=== PATIENT | female | born 1940 | race Caucasian/White ===

== ENCOUNTER 2020-08-19 17:34 | Inpatient (IN) | payer MEDICAID ==
[~2020-08-19] VITALS: Ht 137.2 cm; Wt 113.4 kg
[2020-08-19 18:46] LABS: HEMATOCRIT. 34.2 % (36.0-48.0); HEMOGLOBIN. 11.3 g/dL (12.0-16.0); MEAN CORPUSCULAR HEMOGLOBIN 27.6 pg (28.0-32.0); MEAN CORPUSCULAR VOLUME 83.8 fL (81.0-99.0); PLATELET 341 x1000/uL (130-400); RED BLOOD CELL COUNT 4.08 mill/uL (4.2-5.4); RED CELL DISTRIBUTION WIDTH 18.8 % (11.6-14.6)
[2020-08-19 18:47] LABS: CHLORIDE 108 mEq/L (98-107)
[2020-08-19 19:37] LABS: PLATELET ESTIMATE NORMAL
[2020-08-19] MEDS ORDERED: FUROSEMIDE 40MG/4ML VIAL IVP ONE (22:15)
[2020-08-20 09:26] VITALS: BP 140/88
[2020-08-20] MEDS ORDERED: [UNRECOGNIZED DRUG - CODE] PO (11:12)
[2020-08-20 11:40] VITALS: BP 104/88
[2020-08-20 12:00] VITALS: BP 157/99
[2020-08-20] MEDS ORDERED: ONDANSETRON HCL 4MG/2ML INJ IV PRN (12:00)
[2020-08-20] MEDS ORDERED: ACETAMINOPHEN 325MG TABLET PO PRN (12:00)
[2020-08-20 16:00] VITALS: BP 133/75
[2020-08-20] MEDS ORDERED: ALBUTEROL 6.7GM HFA INHALER ORI PRN (16:30)
[2020-08-20] MEDS ORDERED: ENOXAPARIN 30MG/0.3ML SYR SUBCUT SCH (17:00)
[2020-08-20] MEDS: FUROSEMIDE 40MG/4ML VIAL IVP SCH (17:08)
[2020-08-20 17:22] LABS: CLARITY URINE CLEAR (CLEAR); COLOR URINE YELLOW (YELLOW); KETONES URINE NEGATIVE (NEGATIVE); LEUKOCYTE ESTERASE URINE NEGATIVE (NEGATIVE); NITRITE URINE NEGATIVE (NEGATIVE); OCCULT BLOOD URINE NEGATIVE (NEGATIVE); PROTEIN URINE NEGATIVE (NEGATIVE); SPECIFIC GRAVITY URINE 1.016 (1.005-1.030)
[2020-08-20 20:00] VITALS: BP 144/92
[2020-08-21] VITALS: BP 152/82
[2020-08-21 04:00] VITALS: BP 122/73
[2020-08-21 07:16] LABS: CHLORIDE 108 mEq/L (98-107)
[2020-08-21 07:17] LABS: BASOPHILS % 0.3 % (0.0-2.0); HEMATOCRIT. 35.7 % (36.0-48.0); HEMOGLOBIN. 11.4 g/dL (12.0-16.0); LYMPHOCYTES % 17.3 % (20.0-50.0); MEAN CORPUSCULAR HEMOGLOBIN 27.3 pg (28.0-32.0); MEAN CORPUSCULAR VOLUME 85.2 fL (81.0-99.0); MEAN PLATELET VOLUME 8.6 fl (7.4-10.4); MONOCYTES % 8.5 % (2.0-8.0); NEUTROPHILS % 72.9 % (40.0-76.0); PLATELET 311 x1000/uL (130-400); RED BLOOD CELL COUNT 4.19 mill/uL (4.2-5.4); RED CELL DISTRIBUTION WIDTH 18.8 % (11.6-14.6)
[2020-08-21 08:00] VITALS: BP 105/58
[2020-08-21] MEDS: FUROSEMIDE 40MG/4ML VIAL IVP SCH ×2 (08:22→16:16)
[2020-08-21 12:00] VITALS: BP 109/67
[2020-08-21] MEDS ORDERED: IPRATROPIUM/ALBUTEROL 0.5-3(2.5)MG/3ML NEB HHN PRN (12:15)
[2020-08-21 16:00] VITALS: BP 120/70
[2020-08-21] MEDS ORDERED: FURO-151 MT (17:10)
[2020-08-21 17:27] VITALS: BP 120/70
[2020-08-21] MEDS ORDERED: ENOXAPARIN 30MG/0.3ML SYR SUBCUT SCH (21:00)
[2020-08-31] MEDS ORDERED: WARF-67 PO (00:29)
[2020-08-31] MEDS ORDERED: MONT10TA32 PO (00:34)
[2020-08-31] MEDS ORDERED: LOSA100T32 MT (00:34)
[2020-08-31] MEDS ORDERED: TOPUD PO (00:34)
[2020-08-31] MEDS ORDERED: FOLI-43 MT (00:34)
[2020-08-31] MEDS ORDERED: ATOR10TA69 PO (00:34)
[2020-09-01] MEDS ORDERED: FURO80TA87 MT (11:04)
[2020-09-01] MEDS ORDERED: DILT120C88 PO (11:04)
[2020-09-01] MEDS ORDERED: POTA20TA82 PO (11:04)
[2020-09-01] MEDS ORDERED: RIVA10TA PO (11:04)
== END 2020-08-21 19:00 | disposition home or self-care (01) | DRG 194 ==
LOC: ER 17:34 → 7WST 23:31 → EDBD 23:31 → ENRESERV 08-20 07:27 → CANRESERV 08-20 07:27 → ENRESERV 08-20 07:45 → 8WST 08-21 10:23
PROVIDERS: ADMIT Internal Medicine; ATTEND Internal Medicine
DX: I11.0 Hypertensive heart disease with heart failure (principal); J96.00 Acute respiratory failure, unspecified whether with hypoxia or hypercapnia; E44.0 Moderate protein-calorie malnutrition; E87.8 Other disorders of electrolyte and fluid balance, not elsewhere classified; D64.9 Anemia, unspecified; I48.91 Unspecified atrial fibrillation; E66.01 Morbid (severe) obesity due to excess calories; J45.909 Unspecified asthma, uncomplicated; I50.31 Acute diastolic (congestive) heart failure; Z20.822 Contact with and (suspected) exposure to COVID-19; Z68.44 Body mass index [BMI] 60.0-69.9, adult
CPT/HCPCS: 36415; 71045; 80048; 80053; 81003; 82962; 83605; 83880; 84443; 84484; 85025; 93005; 93306; 99285; J1650; J1940; U0003; U0005

== ENCOUNTER 2020-09-15 11:25 | Inpatient (IN) | payer MEDICAID ==
[~2020-09-15] VITALS: Ht 157.5 cm; Wt 106.7 kg
[~2020-09-15 11:25] MED LIST: ATOR10TA69 PO; DILT120C88 PO; FOLI-43 MT; FURO80TA87 MT; LOSA100T32 MT; MONT10TA32 PO; POTA20TA82 PO; RIVA10TA PO; TOPUD PO; [UNRECOGNIZED DRUG - CODE] PO
[2020-09-15 12:15] LABS: BASOPHILS % 0.4 % (0.0-2.0); EOSINOPHILS % 0.5 % (0.0-5.0); HEMOGLOBIN. 10.6 g/dL (12.0-16.0); LYMPHOCYTES % 15.8 % (20.0-50.0); MEAN CORPUSCULAR HEMOGLOBIN 28.2 pg (28.0-32.0); MEAN CORPUSCULAR VOLUME 82.1 fL (81.0-99.0); MEAN PLATELET VOLUME 7.9 fl (7.4-10.4); MONOCYTES % 6.5 % (2.0-8.0); NEUTROPHILS % 76.8 % (40.0-76.0); PLATELET 356 x1000/uL (130-400); RED BLOOD CELL COUNT 3.77 mill/uL (4.2-5.4); RED CELL DISTRIBUTION WIDTH 16.9 % (11.6-14.6)
[2020-09-15 12:23] LABS: CHLORIDE 110 mEq/L (98-107)
[2020-09-15 12:26] LABS: INR 1.1; PROTHROMBIN TIME 11.9 sec (9.6-11.0)
[2020-09-15] MEDS: FUROSEMIDE 40MG/4ML VIAL IV ONE ×2 (13:15→14:03)
[2020-09-15] MEDS: NITROGLYCERIN OINT 1GM/INCH UDPKT TD ONE ×2 (13:15→14:04)
[2020-09-15] MEDS: ASPIRIN 81MG TABLET PO ONE ×2 (13:15→14:03)
[2020-09-15] MEDS ORDERED: LORAZEPAM 2MG/ML CPJ IM STA (15:39)
[2020-09-15] MEDS: LORAZEPAM 2MG/ML CPJ IV ONE ×2 (15:42→15:43)
[2020-09-15] MEDS ORDERED: ONDANSETRON HCL 4MG/2ML INJ IV PRN (16:30)
[2020-09-15] MEDS ORDERED: ACETAMINOPHEN 325MG TABLET PO PRN (16:30)
[2020-09-15] MEDS ORDERED: HYDROCODONE/ACETAMINOPHEN 5/325MG TABLET PO PRN (16:30)
[2020-09-15] MEDS ORDERED: LORAZEPAM 2MG/ML CPJ IM PRN (16:45)
[2020-09-15] MEDS ORDERED: HALOPERIDOL LACTATE 5MG/ML VIAL IM ONE (18:15)
[2020-09-15] MEDS: ENOXAPARIN 40MG/0.4ML SYR SUBCUT SCH (19:38)
[2020-09-15] MEDS: FUROSEMIDE 40MG/4ML VIAL IV SCH (20:16)
[2020-09-15 22:00] VITALS: BP 129/80
[2020-09-16] VITALS: BP 129/75
[2020-09-16 00:07] LABS: CREATINE KINASE 66 IU/L (26-192)
[2020-09-16 00:08] LABS: CREATINE KINASE MB FRACTION 1.7 ng/mL (0.5-3.6)
[2020-09-16] MEDS ORDERED: HALOPERIDOL LACTATE 5MG/ML VIAL IM SCH (01:30)
[2020-09-16 04:00] VITALS: BP_SYST 129; BP_SYST 182; BP_DIAS 73; BP_DIAS 96
[2020-09-16] MEDS: FUROSEMIDE 40MG/4ML VIAL IV SCH ×2 (05:58→17:45)
[2020-09-16 06:54] LABS: CHLORIDE 107 mEq/L (98-107)
[2020-09-16 07:02] LABS: LDL CHOLESTEROL 81 mg/dL (5-100)
[2020-09-16 07:03] LABS: CREATINE KINASE MB FRACTION 1.9 ng/mL (0.5-3.6); HDL CHOLESTEROL 50 mg/dL (40-59)
[2020-09-16 07:04] LABS: CREATINE KINASE 78 IU/L (26-192)
[2020-09-16 07:06] LABS: BASOPHILS % 0.5 % (0.0-2.0); EOSINOPHILS % 3.1 % (0.0-5.0); HEMATOCRIT. 34.4 % (36.0-48.0); HEMOGLOBIN. 11.4 g/dL (12.0-16.0); LYMPHOCYTES % 12.9 % (20.0-50.0); MEAN CORPUSCULAR HEMOGLOBIN 27.3 pg (28.0-32.0); MEAN CORPUSCULAR VOLUME 82.6 fL (81.0-99.0); MEAN PLATELET VOLUME 9.2 fl (7.4-10.4); MONOCYTES % 6.3 % (2.0-8.0); NEUTROPHILS % 77.2 % (40.0-76.0); PLATELET 418 x1000/uL (130-400); RED BLOOD CELL COUNT 4.17 mill/uL (4.2-5.4); RED CELL DISTRIBUTION WIDTH 17.1 % (11.6-14.6)
[2020-09-16 08:00] VITALS: BP 148/82
[2020-09-16] MEDS ORDERED: FUROSEMIDE 40MG/4ML VIAL IV SCH (09:00)
[2020-09-16] MEDS: SPIRONOLACTONE 25MG TABLET PO SCH (09:48)
[2020-09-16] MEDS: ASPIRIN 81MG TABLET PO SCH (10:00)
[2020-09-16 12:00] VITALS: BP 145/86
[2020-09-16] MEDS ORDERED: CLONIDINE 0.1MG TABLET PO PRN (15:00)
[2020-09-16 16:00] VITALS: BP 144/89
[2020-09-16] MEDS: ENOXAPARIN 40MG/0.4ML SYR SUBCUT SCH (17:44)
[2020-09-16 20:00] VITALS: BP 106/65
[2020-09-17] MEDS ORDERED: IPRATROPIUM/ALBUTEROL 0.5-3(2.5)MG/3ML NEB HHN PRN (00:15)
[2020-09-17 00:31] VITALS: BP 135/62
[2020-09-17 04:00] VITALS: BP 164/62
[2020-09-17] MEDS: FUROSEMIDE 40MG/4ML VIAL IV SCH ×2 (07:00→17:39)
[2020-09-17 08:00] VITALS: BP_SYST 105; BP_SYST 151; BP_DIAS 64; BP_DIAS 72
[2020-09-17] MEDS: IPRATROPIUM/ALBUTEROL 0.5-3(2.5)MG/3ML NEB HHN SCH ×3 (08:39→20:32)
[2020-09-17] MEDS: SPIRONOLACTONE 25MG TABLET PO SCH (09:44)
[2020-09-17] MEDS: ASPIRIN 81MG TABLET PO SCH (09:45)
[2020-09-17 12:00] VITALS: BP 137/80
[2020-09-17 13:53] LABS: CLARITY URINE CLEAR (CLEAR); COLOR URINE YELLOW (YELLOW); KETONES URINE NEGATIVE (NEGATIVE); LEUKOCYTE ESTERASE URINE NEGATIVE (NEGATIVE); NITRITE URINE NEGATIVE (NEGATIVE); OCCULT BLOOD URINE NEGATIVE (NEGATIVE); PH URINE 6.5 (4.5-8.0); PROTEIN URINE NEGATIVE (NEGATIVE); SPECIFIC GRAVITY URINE 1.012 (1.005-1.030); UROBILINOGEN URINE 0.2 E.U./dL (0.2-1.0)
[2020-09-17 16:00] VITALS: BP 134/59
[2020-09-17 17:23] LABS: BASOPHILS % 0.3 % (0.0-2.0); EOSINOPHILS % 0.4 % (0.0-5.0); HEMATOCRIT. 32.5 % (36.0-48.0); LYMPHOCYTES % 11.7 % (20.0-50.0); MEAN CORPUSCULAR HEMOGLOBIN 27.3 pg (28.0-32.0); MEAN CORPUSCULAR VOLUME 81.1 fL (81.0-99.0); MEAN PLATELET VOLUME 8.1 fl (7.4-10.4); MONOCYTES % 9.8 % (2.0-8.0); NEUTROPHILS % 77.8 % (40.0-76.0); PLATELET 362 x1000/uL (130-400); RED BLOOD CELL COUNT 4.01 mill/uL (4.2-5.4); RED CELL DISTRIBUTION WIDTH 16.6 % (11.6-14.6)
[2020-09-17 17:31] LABS: CHLORIDE 105 mEq/L (98-107)
[2020-09-17] MEDS ORDERED: ENOXAPARIN 30MG/0.3ML SYR SUBCUT SCH (18:00)
[2020-09-17] MEDS: METOPROLOL TARTRATE 25MG TABLET PO SCH (20:38)
[2020-09-17 20:41] VITALS: BP 111/69
[2020-09-17] MEDS ORDERED: MELATONIN 3MG TABLET PO PRN (21:00)
[2020-09-17] MEDS ORDERED: FURO-151 MT (21:48)
[2020-09-17] MEDS ORDERED: METO25TA6 PO (21:48)
[2020-09-18] VITALS: BP 109/57
[2020-09-18] MEDS: IPRATROPIUM/ALBUTEROL 0.5-3(2.5)MG/3ML NEB HHN SCH ×2 (01:44→13:13)
[2020-09-18 04:00] VITALS: BP 121/67
[2020-09-18] MEDS: FUROSEMIDE 40MG/4ML VIAL IV SCH (05:40)
[2020-09-18 08:00] VITALS: BP 129/74
[2020-09-18] MEDS: SPIRONOLACTONE 25MG TABLET PO SCH (08:57)
[2020-09-18] MEDS: ASPIRIN 81MG TABLET PO SCH (08:57)
[2020-09-18] MEDS: METOPROLOL TARTRATE 25MG TABLET PO SCH (08:57)
[2020-09-18] MEDS ORDERED: FUROSEMIDE 40MG TABLET PO SCH (10:00)
[2020-09-18 12:00] VITALS: BP 121/58
[2020-09-18 13:41] VITALS: BP 121/87
[2020-09-18] MEDS ORDERED: RIVAROXABAN 20 MG TABLET PO SCH (17:00)
== END 2020-09-18 14:50 | disposition home or self-care (01) | DRG 194 ==
LOC: ER 11:25 → 5WST 13:55 → ENRESERV 19:09 → CANRESERV 19:09 → ENRESERV 19:12
PROVIDERS: ADMIT Family Medicine; ATTEND Family Medicine
DX: I11.0 Hypertensive heart disease with heart failure (principal); J96.01 Acute respiratory failure with hypoxia; G93.40 Encephalopathy, unspecified; E66.01 Morbid (severe) obesity due to excess calories; I27.20 Pulmonary hypertension, unspecified; Z68.41 Body mass index [BMI] 40.0-44.9, adult; I48.91 Unspecified atrial fibrillation; I50.33 Acute on chronic diastolic (congestive) heart failure; Z78.1 Physical restraint status; D64.9 Anemia, unspecified; G47.33 Obstructive sleep apnea (adult) (pediatric); I25.10 Atherosclerotic heart disease of native coronary artery without angina pectoris; J45.909 Unspecified asthma, uncomplicated; Z79.899 Other long term (current) drug therapy
CPT/HCPCS: 36415; 71045; 80053; 80061; 81003; 82550; 82553; 82962; 83880; 84484; 85025; 93005; 93970; 94640; 99285; A6261; J1630; J1650; J1940; J2060

== ENCOUNTER 2020-11-13 06:10 | Inpatient (IN) | payer MEDICAID ==
[~2020-11-13] VITALS: Ht 134.6 cm; Wt 106.6 kg
[~2020-11-13 06:10] MED LIST changes: -DILT120C88 PO; +FURO-151 MT; -FURO80TA87 MT; -LOSA100T32 MT; +METO25TA6 PO
[2020-11-13] MEDS ORDERED: MORPHINE SULFATE 4 MG/ML CPJ (NOT FOR IM USE) IV STA (07:25)
[2020-11-13] MEDS ORDERED: ONDANSETRON HCL 4MG/2ML INJ IV STA (07:25)
[2020-11-13] MEDS ORDERED: CEFTRIAXONE 1 G PREMIX 50 ML IV ONE (07:30)
[2020-11-13] MEDS ORDERED: SODIUM CHLORIDE 0.9% 1,000 ML IV ONE (07:30)
[2020-11-13 08:20] LABS: BASOPHILS % 0.8 % (0.0-2.0); EOSINOPHILS % 2.3 % (0.0-5.0); HEMATOCRIT. 33.9 % (36.0-48.0); HEMOGLOBIN. 10.5 g/dL (12.0-16.0); MEAN CORPUSCULAR HEMOGLOBIN 24.4 pg (28.0-32.0); MEAN CORPUSCULAR VOLUME 78.4 fL (81.0-99.0); MEAN PLATELET VOLUME 8.3 fl (7.4-10.4); MONOCYTES % 10.3 % (2.0-8.0); NEUTROPHILS % 67.6 % (40.0-76.0); PLATELET 367 x1000/uL (130-400); RED BLOOD CELL COUNT 4.32 mill/uL (4.2-5.4); RED CELL DISTRIBUTION WIDTH 17.4 % (11.6-14.6)
[2020-11-13 08:25] LABS: CHLORIDE 104 mEq/L (98-107)
[2020-11-13 08:31] LABS: INR 1.1; PARTIAL THROMBOPLASTIN TIME 27.3 sec (23.4-31.0); PROTHROMBIN TIME 11.9 sec (9.6-11.0)
[2020-11-13 10:01] LABS: CLARITY URINE CLEAR (CLEAR); COLOR URINE YELLOW (YELLOW); KETONES URINE NEGATIVE (NEGATIVE); LEUKOCYTE ESTERASE URINE TRACE (NEGATIVE); NITRITE URINE NEGATIVE (NEGATIVE); OCCULT BLOOD URINE NEGATIVE (NEGATIVE); PH URINE 5.5 (4.5-8.0); PROTEIN URINE NEGATIVE (NEGATIVE); SPECIFIC GRAVITY URINE 1.016 (1.005-1.030)
[2020-11-13] MEDS ORDERED: LORAZEPAM 0.5MG TABLET PO PRN (14:45)
[2020-11-13] MEDS ORDERED: DOCUSATE SODIUM 100MG CAPSULE PO PRN (14:45)
[2020-11-13] MEDS ORDERED: ONDANSETRON HCL 4MG/2ML INJ IV PRN (14:45)
[2020-11-13] MEDS ORDERED: ACETAMINOPHEN 325MG TABLET PO PRN (14:45)
[2020-11-13] MEDS ORDERED: CLONIDINE 0.1MG TABLET PO PRN (14:45)
[2020-11-13] MEDS ORDERED: IPRATROPIUM/ALBUTEROL 0.5-3(2.5)MG/3ML NEB HHN PRN (14:45)
[2020-11-13] MEDS: PANTOPRAZOLE 40MG DR TABLET PO SCH (14:58)
[2020-11-13] MEDS: MORPHINE SULFATE 2 MG/ML CPJ (NOT FOR IM USE) IV PRN ×2 (15:04→22:05)
[2020-11-13] MEDS: ENOXAPARIN 120MG/0.8ML SYR SUBCUT SCH (17:05)
[2020-11-13] MEDS: MONTELUKAST SODIUM 10MG TABLET PO SCH (18:04)
[2020-11-13] MEDS: FUROSEMIDE 40MG TABLET PO SCH (18:04)
[2020-11-13] MEDS: METOPROLOL TARTRATE 25MG TABLET PO SCH (21:00)
[2020-11-13] MEDS: ATORVASTATIN CALCIUM 10MG TABLET PO SCH (21:00)
[2020-11-14 02:45] VITALS: BP 115/68
[2020-11-14 04:00] VITALS: BP 131/75
[2020-11-14] MEDS: ENOXAPARIN 120MG/0.8ML SYR SUBCUT SCH (05:37)
[2020-11-14 05:38] LABS: BASOPHILS % 0.9 % (0.0-2.0); EOSINOPHILS % 1.7 % (0.0-5.0); HEMATOCRIT. 34.7 % (36.0-48.0); HEMOGLOBIN. 10.6 g/dL (12.0-16.0); LYMPHOCYTES % 16.2 % (20.0-50.0); MEAN CORPUSCULAR HEMOGLOBIN 24.2 pg (28.0-32.0); MEAN CORPUSCULAR VOLUME 79.6 fL (81.0-99.0); MONOCYTES % 9.6 % (2.0-8.0); NEUTROPHILS % 71.6 % (40.0-76.0); PLATELET 342 x1000/uL (130-400); RED BLOOD CELL COUNT 4.36 mill/uL (4.2-5.4); RED CELL DISTRIBUTION WIDTH 17.6 % (11.6-14.6)
[2020-11-14 06:20] LABS: CHLORIDE 107 mEq/L (98-107)
[2020-11-14 06:28] LABS: LDL CHOLESTEROL 38 mg/dL (5-100)
[2020-11-14 06:29] LABS: TOTAL IRON BINDING CAPACITY 296 ug/dL (250-450)
[2020-11-14 06:30] LABS: HDL CHOLESTEROL 34 mg/dL (40-59)
[2020-11-14] MEDS: PANTOPRAZOLE 40MG DR TABLET PO SCH (06:36)
[2020-11-14 08:00] VITALS: BP 109/55
[2020-11-14] MEDS: FUROSEMIDE 40MG TABLET PO SCH ×2 (09:00→18:57)
[2020-11-14] MEDS: METOPROLOL TARTRATE 25MG TABLET PO SCH ×2 (09:00→21:02)
[2020-11-14] MEDS: FOLIC ACID 1MG TABLET PO SCH (09:28)
[2020-11-14 12:00] VITALS: BP 109/51
[2020-11-14] MEDS ORDERED: MIDAZOLAM HCL 5 MG/5 ML VIAL ONE (15:41)
[2020-11-14] MEDS ORDERED: FENTANYL CITRATE/PF 50MCG/ML 2ML VIAL ONE (15:41)
[2020-11-14] MEDS ORDERED: MIDAZOLAM HCL 5 MG/5 ML VIAL IV PRN (15:42)
[2020-11-14] MEDS ORDERED: FENTANYL CITRATE/PF 50MCG/ML 2ML VIAL IV PRN (15:43)
[2020-11-14 17:00] VITALS: BP 118/57
[2020-11-14] MEDS ORDERED: ENOXAPARIN 120MG/0.8ML SYR SUBCUT SCH (18:00)
[2020-11-14] MEDS: MONTELUKAST SODIUM 10MG TABLET PO SCH (18:57)
[2020-11-14] MEDS: SODIUM CHL 0.45% + KCL 20MEQ/L 1,000 ML IV SCH (19:01)
[2020-11-14] MEDS: IRON SUCROSE COMPLEX 100 MG/5 ML ML IV SCH (19:01)
[2020-11-14] MEDS: PANTOPRAZOLE SODIUM 40 MG/VIAL IV SCH (19:01)
[2020-11-14 20:00] VITALS: BP_SYST 115; BP_SYST 118; BP_DIAS 68
[2020-11-14] MEDS: ATORVASTATIN CALCIUM 10MG TABLET PO SCH (21:01)
[2020-11-14] MEDS: HALOPERIDOL LACTATE 5MG/ML VIAL IM PRN (21:18)
[2020-11-14] MEDS ORDERED: VANCOMYCIN 750 MG PREMIX 150 ML IV SCH (22:00)
[2020-11-15] VITALS: BP 118/68
[2020-11-15] MEDS: HALOPERIDOL LACTATE 5MG/ML VIAL IM PRN (00:51)
[2020-11-15 04:00] VITALS: BP 155/71
[2020-11-15] MEDS: SODIUM CHL 0.45% + KCL 20MEQ/L 1,000 ML IV SCH (05:36)
[2020-11-15] MEDS: PANTOPRAZOLE SODIUM 40 MG/VIAL IV SCH ×2 (05:36→18:00)
[2020-11-15 06:48] LABS: BASOPHILS % 0.5 % (0.0-2.0); EOSINOPHILS % 1.5 % (0.0-5.0); HEMATOCRIT. 33.7 % (36.0-48.0); HEMOGLOBIN. 10.2 g/dL (12.0-16.0); LYMPHOCYTES % 16.6 % (20.0-50.0); MEAN CORPUSCULAR HEMOGLOBIN 24.4 pg (28.0-32.0); MEAN CORPUSCULAR VOLUME 80.9 fL (81.0-99.0); MONOCYTES % 11.3 % (2.0-8.0); NEUTROPHILS % 70.1 % (40.0-76.0); PLATELET 360 x1000/uL (130-400); RED BLOOD CELL COUNT 4.16 mill/uL (4.2-5.4)
[2020-11-15 07:02] LABS: CHLORIDE 107 mEq/L (98-107)
[2020-11-15 08:00] VITALS: BP 115/51
[2020-11-15] MEDS: FUROSEMIDE 40MG TABLET PO SCH ×2 (09:03→17:00)
[2020-11-15] MEDS: METOPROLOL TARTRATE 25MG TABLET PO SCH ×2 (09:03→21:00)
[2020-11-15] MEDS: FOLIC ACID 1MG TABLET PO SCH (09:03)
[2020-11-15] MEDS ORDERED: NALOXONE HCL 0.4MG/ML VIAL IV PRN (14:30)
[2020-11-15] MEDS: ENOXAPARIN 30MG/0.3ML SYR SUBCUT SCH (15:00)
[2020-11-15] MEDS ORDERED: ENOXAPARIN 40MG/0.4ML SYR SUBCUT SCH (15:00)
[2020-11-15] MEDS: IRON SUCROSE COMPLEX 100 MG/5 ML ML IV SCH (16:00)
[2020-11-15] MEDS: MONTELUKAST SODIUM 10MG TABLET PO SCH (17:00)
[2020-11-15] MEDS ORDERED: LORAZEPAM 2MG/ML CPJ IV PRN (17:30)
[2020-11-15 20:00] VITALS: BP 145/94
[2020-11-15] MEDS: ATORVASTATIN CALCIUM 10MG TABLET PO SCH (21:00)
[2020-11-16] VITALS: BP 117/65
[2020-11-16] MEDS: ENOXAPARIN 30MG/0.3ML SYR SUBCUT SCH (03:09)
[2020-11-16] MEDS: SODIUM CHL 0.45% + KCL 20MEQ/L 1,000 ML IV SCH (03:09)
[2020-11-16 04:00] VITALS: BP 124/85
[2020-11-16] MEDS: PANTOPRAZOLE SODIUM 40 MG/VIAL IV SCH ×2 (06:00→18:00)
[2020-11-16 06:45] LABS: BASOPHILS % 1.1 % (0.0-2.0); EOSINOPHILS % 2.1 % (0.0-5.0); HEMOGLOBIN. 10.5 g/dL (12.0-16.0); LYMPHOCYTES % 23.3 % (20.0-50.0); MEAN CORPUSCULAR HEMOGLOBIN 24.6 pg (28.0-32.0); MEAN PLATELET VOLUME 8.2 fl (7.4-10.4); MONOCYTES % 9.4 % (2.0-8.0); NEUTROPHILS % 64.1 % (40.0-76.0); PLATELET 379 x1000/uL (130-400); RED BLOOD CELL COUNT 4.29 mill/uL (4.2-5.4); RED CELL DISTRIBUTION WIDTH 17.6 % (11.6-14.6)
[2020-11-16 06:50] LABS: CHLORIDE 107 mEq/L (98-107)
[2020-11-16 08:00] VITALS: BP 109/44
[2020-11-16] MEDS: DIATR MEGLU/DIATRIZOATE SOLN 30ML PO SCH ×2 (08:31→10:03)
[2020-11-16] MEDS ORDERED: POTASSIUM CHLORIDE 20MEQ/PACKET PO NR (09:00)
[2020-11-16] MEDS: HYDROCODONE/ACETAMINOPHEN 5/325MG TABLET PO PRN ×2 (10:10→15:23)
[2020-11-16 12:00] VITALS: BP 130/65
[2020-11-16] MEDS ORDERED: REGADENOSON 0.4 MG/5 ML IV NR (14:30)
[2020-11-16] MEDS ORDERED: IOHEXOL-300 100 ML BOTTLE ONE (14:40)
[2020-11-16] MEDS: FOLIC ACID 1MG TABLET PO SCH (15:14)
[2020-11-16] MEDS: FUROSEMIDE 40MG TABLET PO SCH ×2 (15:14→17:16)
[2020-11-16] MEDS: METOPROLOL TARTRATE 25MG TABLET PO SCH ×2 (15:15→22:10)
[2020-11-16] MEDS: SPIRONOLACTONE 25MG TABLET PO SCH (15:19)
[2020-11-16] MEDS: IRON SUCROSE COMPLEX 100 MG/5 ML ML IV SCH (15:20)
[2020-11-16 16:00] VITALS: BP 110/50
[2020-11-16] MEDS: MONTELUKAST SODIUM 10MG TABLET PO SCH (17:16)
[2020-11-16] MEDS: MORPHINE SULFATE 2 MG/ML CPJ (NOT FOR IM USE) IV PRN (17:18)
[2020-11-16 18:37] LABS: CREATINE KINASE 57 IU/L (26-192)
[2020-11-16 18:38] LABS: CREATINE KINASE MB FRACTION 1.2 ng/mL (0.5-3.6)
[2020-11-16 18:40] LABS: T4 FREE 1.49 ng/dL (0.76-1.46)
[2020-11-16 20:00] VITALS: BP 133/68
[2020-11-16] MEDS: ATORVASTATIN CALCIUM 10MG TABLET PO SCH (22:10)
[2020-11-17] VITALS: BP 111/70
[2020-11-17] MEDS: SODIUM CHL 0.45% + KCL 20MEQ/L 1,000 ML IV SCH ×2 (00:10→13:36)
[2020-11-17 00:27] LABS: CREATINE KINASE 67 IU/L (26-192)
[2020-11-17 00:28] LABS: CREATINE KINASE MB FRACTION 1.3 ng/mL (0.5-3.6)
[2020-11-17 04:00] VITALS: BP 121/71
[2020-11-17] MEDS: PANTOPRAZOLE SODIUM 40 MG/VIAL IV SCH ×2 (05:58→17:15)
[2020-11-17 06:30] LABS: BASOPHILS % 0.7 % (0.0-2.0); EOSINOPHILS % 0.7 % (0.0-5.0); HEMATOCRIT. 34.5 % (36.0-48.0); HEMOGLOBIN. 10.8 g/dL (12.0-16.0); LYMPHOCYTES % 11.8 % (20.0-50.0); MEAN CORPUSCULAR HEMOGLOBIN 24.5 pg (28.0-32.0); MEAN CORPUSCULAR VOLUME 78.3 fL (81.0-99.0); MEAN PLATELET VOLUME 8.4 fl (7.4-10.4); MONOCYTES % 8.1 % (2.0-8.0); NEUTROPHILS % 78.7 % (40.0-76.0); PLATELET 380 x1000/uL (130-400); RED BLOOD CELL COUNT 4.41 mill/uL (4.2-5.4); RED CELL DISTRIBUTION WIDTH 17.9 % (11.6-14.6)
[2020-11-17 07:18] LABS: CHLORIDE 104 mEq/L (98-107)
[2020-11-17 07:27] LABS: CREATINE KINASE 61 IU/L (26-192)
[2020-11-17 07:28] LABS: CREATINE KINASE MB FRACTION 1.5 ng/mL (0.5-3.6)
[2020-11-17] MEDS: MORPHINE SULFATE 2 MG/ML CPJ (NOT FOR IM USE) IV PRN (07:46)
[2020-11-17 08:00] VITALS: BP 139/80
[2020-11-17] MEDS: FOLIC ACID 1MG TABLET PO SCH (09:20)
[2020-11-17] MEDS: FUROSEMIDE 40MG TABLET PO SCH ×2 (09:20→17:15)
[2020-11-17] MEDS: METOPROLOL TARTRATE 25MG TABLET PO SCH ×2 (09:20→21:37)
[2020-11-17] MEDS: SPIRONOLACTONE 25MG TABLET PO SCH (09:21)
[2020-11-17] MEDS ORDERED: REGADENOSON 0.4 MG/5 ML IV ONE (12:35)
[2020-11-17 16:00] VITALS: BP 132/82
[2020-11-17] MEDS: MONTELUKAST SODIUM 10MG TABLET PO SCH (17:15)
[2020-11-17 20:00] VITALS: BP 117/68
[2020-11-17] MEDS: ATORVASTATIN CALCIUM 10MG TABLET PO SCH (21:37)
[2020-11-17] MEDS: HYDROCODONE/ACETAMINOPHEN 5/325MG TABLET PO PRN (22:48)
[2020-11-18] VITALS: BP 112/57
[2020-11-18 04:00] VITALS: BP 144/70
[2020-11-18] MEDS: SODIUM CHL 0.45% + KCL 20MEQ/L 1,000 ML IV SCH ×2 (05:22→17:39)
[2020-11-18] MEDS: PANTOPRAZOLE SODIUM 40 MG/VIAL IV SCH ×2 (05:23→17:39)
[2020-11-18 08:00] VITALS: BP 148/87
[2020-11-18 08:10] LABS: BASOPHILS % 0.8 % (0.0-2.0); EOSINOPHILS % 3.1 % (0.0-5.0); HEMATOCRIT. 35.9 % (36.0-48.0); HEMOGLOBIN. 11.2 g/dL (12.0-16.0); MEAN CORPUSCULAR HEMOGLOBIN 24.2 pg (28.0-32.0); MEAN CORPUSCULAR VOLUME 77.5 fL (81.0-99.0); MEAN PLATELET VOLUME 8.2 fl (7.4-10.4); NEUTROPHILS % 70.1 % (40.0-76.0); PLATELET 383 x1000/uL (130-400); RED BLOOD CELL COUNT 4.63 mill/uL (4.2-5.4); RED CELL DISTRIBUTION WIDTH 18.1 % (11.6-14.6)
[2020-11-18 08:39] LABS: CHLORIDE 104 mEq/L (98-107)
[2020-11-18] MEDS: FUROSEMIDE 40MG TABLET PO SCH ×2 (09:00→17:00)
[2020-11-18] MEDS: SPIRONOLACTONE 25MG TABLET PO SCH (10:14)
[2020-11-18] MEDS: METOPROLOL TARTRATE 25MG TABLET PO SCH ×2 (10:15→21:02)
[2020-11-18] MEDS: FOLIC ACID 1MG TABLET PO SCH (10:15)
[2020-11-18] MEDS ORDERED: POTASSIUM CHLORIDE 20MEQ/PACKET PO NR (11:00)
[2020-11-18 12:00] VITALS: BP 150/82
[2020-11-18] MEDS ORDERED: HYDROCODONE/ACETAMINOPHEN 5/325MG TABLET PO PRN (15:45)
[2020-11-18] MEDS ORDERED: MORPHINE SULFATE 2 MG/ML CPJ (NOT FOR IM USE) IV PRN (15:45)
[2020-11-18 16:00] VITALS: BP 124/64
[2020-11-18] MEDS: MONTELUKAST SODIUM 10MG TABLET PO SCH (17:39)
[2020-11-18 20:00] VITALS: BP 113/74
[2020-11-18] MEDS: ATORVASTATIN CALCIUM 10MG TABLET PO SCH (21:01)
[2020-11-19] VITALS: BP 129/57
[2020-11-19] MEDS: ACETAMINOPHEN 325MG TABLET PO PRN ×2 (00:18→06:49)
[2020-11-19 04:00] VITALS: BP 125/60
[2020-11-19 05:57] LABS: CHLORIDE 106 mEq/L (98-107)
[2020-11-19] MEDS: PANTOPRAZOLE SODIUM 40 MG/VIAL IV SCH (06:00)
[2020-11-19 06:21] LABS: BASOPHILS % 0.7 % (0.0-2.0); EOSINOPHILS % 4.2 % (0.0-5.0); HEMATOCRIT. 35.9 % (36.0-48.0); LYMPHOCYTES % 22.1 % (20.0-50.0); MEAN CORPUSCULAR HEMOGLOBIN 24.5 pg (28.0-32.0); MEAN CORPUSCULAR VOLUME 79.8 fL (81.0-99.0); MEAN PLATELET VOLUME 7.7 fl (7.4-10.4); PLATELET 332 x1000/uL (130-400); RED BLOOD CELL COUNT 4.49 mill/uL (4.2-5.4); RED CELL DISTRIBUTION WIDTH 18.1 % (11.6-14.6)
[2020-11-19] MEDS ORDERED: OMEPRAZOLE 20MG CAPSULE EXTENDED RELEASE PO SCH (07:20)
[2020-11-19] MEDS: SODIUM CHL 0.45% + KCL 20MEQ/L 1,000 ML IV SCH (07:38)
[2020-11-19 08:00] VITALS: BP 106/63
[2020-11-19] MEDS: METOPROLOL TARTRATE 25MG TABLET PO SCH (09:00)
[2020-11-19] MEDS: FUROSEMIDE 40MG TABLET PO SCH ×2 (09:47→16:55)
[2020-11-19] MEDS: FOLIC ACID 1MG TABLET PO SCH (09:47)
[2020-11-19] MEDS: SPIRONOLACTONE 25MG TABLET PO SCH (09:47)
[2020-11-19] MEDS ORDERED: SPIR25TA PO (11:36)
[2020-11-19] MEDS ORDERED: OMEP20CA14 PO (11:36)
[2020-11-19 12:00] VITALS: BP 110/50
[2020-11-19] MEDS ORDERED: IRON SUCROSE COMPLEX 100 MG/5 ML ML IV NR (12:45)
[2020-11-19 15:16] VITALS: BP 103/64
[2020-11-19 16:00] VITALS: BP 103/64
[2020-11-19] MEDS: MONTELUKAST SODIUM 10MG TABLET PO SCH (16:59)
[2020-11-22 08:00] VITALS: BP 142/77
== END 2020-11-19 18:10 | disposition home or self-care (01) | DRG 241 ==
LOC: ER 06:10 → MICUSO 10:57 → 6EST 11-14 01:52
PROVIDERS: ADMIT Internal Medicine; ATTEND Internal Medicine
PROC: 0DB98ZX Excision of Duodenum, Via Natural or Artificial Opening Endoscopic, Diagnostic (ICD-10-PCS; principal; 2020-11-14)
PROC: 0DB68ZX Excision of Stomach, Via Natural or Artificial Opening Endoscopic, Diagnostic (ICD-10-PCS; 2020-11-14)
DX: K26.9 Duodenal ulcer, unspecified as acute or chronic, without hemorrhage or perforation (principal); I50.33 Acute on chronic diastolic (congestive) heart failure; E43 Unspecified severe protein-calorie malnutrition; I27.20 Pulmonary hypertension, unspecified; C16.9 Malignant neoplasm of stomach, unspecified; K31.1 Adult hypertrophic pyloric stenosis; Z68.43 Body mass index [BMI] 50.0-59.9, adult; I48.91 Unspecified atrial fibrillation; D25.9 Leiomyoma of uterus, unspecified; K29.60 Other gastritis without bleeding; E66.01 Morbid (severe) obesity due to excess calories; M43.16 Spondylolisthesis, lumbar region; N39.0 Urinary tract infection, site not specified; G47.33 Obstructive sleep apnea (adult) (pediatric); I11.0 Hypertensive heart disease with heart failure; D50.9 Iron deficiency anemia, unspecified; I25.10 Atherosclerotic heart disease of native coronary artery without angina pectoris; J45.909 Unspecified asthma, uncomplicated; Z20.822 Contact with and (suspected) exposure to COVID-19; Z79.01 Long term (current) use of anticoagulants; Z82.49 Family history of ischemic heart disease and other diseases of the circulatory system; Z82.5 Family history of asthma and other chronic lower respiratory diseases; Z91.19 Patient's noncompliance with other medical treatment and regimen; Z79.899 Other long term (current) drug therapy; Z71.3 Dietary counseling and surveillance
CPT/HCPCS: 36415; 71045; 71260; 74018; 74176; 74177; 78452; 80048; 80053; 80061; 81003; 82550; 82553; 82728; 83036; 83540; 83550; 83605; 83880; 84439; 84443; 84484; 85025; 85379; 87426; 88305; 88312; 88313; 93005; 93017; 93306; 99285; A6261; A9500; C9113; J0696; J1630; J1650; J2060; J2250; J2270; J2405; J2785; J3010; J3370; J3480; J7030; Q9963; Q9967